=== PATIENT | female | born 1965 | race Caucasian/White ===

== ENCOUNTER 2018-09-11 21:14 | Emergency (ER) | payer OTHER ==
[2018-09-11 21:47] LABS: #Basophils 0.1 thou/uL (0.0-0.2); #Eosinphils 0.1 thou/uL (0.0-0.7); #Lymphocytes 1.7 thou/uL (1.20-3.40); #Monocytes 0.6 thou/uL (0.11-0.59); #Neutrophils 7.8 thou/uL (1.40-6.50); %Eosinophils 0.5 % (0.0-10.0); %Lymphocytes 16.6 % (21.0-51.0); %Monocytes 5.5 % (0.0-10.0); %Neutrophils 76.5 % (42.0-75.0); Hemoglobin 14.6 g/dL (12.0-16.0); Mean Corpuscular HGB CONC 33.3 g/dL (32.0-36.0); Mean Platelet Volume 9.1 fL (7.4-10.4); Platelet Count 195 thou/uL (130-400); RBC Distribution Width 11.5 % (11.5-14.5); Red Blood Cell (RBC) Count 4.71 mill/uL (4.20-5.40); White Blood Cell (WBC) Count 10.2 thou/uL (4.8-10.8)
[2018-09-11 22:09] LABS: ALT (SGPT) 29 U/L (8-55); AST (SGOT) 31 U/L (5-34); Albumin 4.3 g/dL (3.5-5.0); Alkaline Phosphatase 120 U/L (40-150); Anion Gap 15 mmol/L (10-20); BUN (Urea Nitrogen) 15 mg/dL (9.8-20.1); Bilirubin, Total 0.3 mg/dL (0.2-1.2); Calc. Creatinine Clearance 0 mL/min (70-130); Calcium 10.1 mg/dL (7.8-10.44); Carbon Dioxide 23 mmol/L (22-29); Chloride 104 mmol/L (98-107); Estimated GFR-MDRD 74; Globulin 2.6 g/dL (2.4-3.5); Glucose 146 mg/dL (70-105); Potassium 4.3 mmol/L (3.5-5.1); Protein, Total 6.9 g/dL (6.0-8.3); Sodium 138 mmol/L (136-145)
--- NOTE | 2018-09-12 08:58 | CT ---
PRELIMINARY REPORT/[facility]/EMERGENTY AFTER-HOURS PROCEDURE CT Head Without Contrast EXAM DATE/TIME: 09/12/2018 12:41 AM CLINICAL HISTORY: 53 years old, female; Signs and symptoms; Dizziness; Patient HX: F53 presents to ed with C/O dizzines s x5 days, intermittent. Patient reports that the dizziness seems to closely follow eating. Patient r eports increasing frequency of dizzy spells with headaches, nausea and diarrhea. Patient describes se nsation as spinning room and generalized weakness TECHNIQUE: Axial computed tomography images of the head/brain without contrast. COMPARISON: No relevant prior studies available. FINDINGS: Brain: Normal. Ventricles: Normal. Bones/joints: Normal. Sinuses: Normal as visualized. Mastoid air cells: Normal as visualized. Soft tissues: Normal. IMPRESSION: No acute intracranial abnormality. Thank you for allowing us to participate in the care of your patient. Dictated and Authenticated by: Sixto Ramos MD 09/12/2018 1:25 AM Central Time ([place] & [place]) FINAL REPORT CT HEAD NONCONTRAST: DATE: 09/12/2018. TIME: Performed on an emergency basis at 0042 hours. HISTORY: Dizziness. Altered mental status. FINDINGS: Agree with the preliminary report by Dr. Ramos from [facility]. No acute intracranial abnorm alities are demonstrated. POS: [facility]
--- NOTE | 2018-09-12 09:01 | CT ---
PRELIMINARY REPORT/[facility]/EMERGENTY AFTER-HOURS PROCEDURE CT Angiography Head With Contrast EXAM DATE/TIME: 09/12/2018 12:46 AM CLINICAL HISTORY: 53 years old, female; Signs and symptoms; Dizziness and giddiness; Patient HX: F53 presents to ed wit h C/O dizziness x5 days, intermittent. Patient reports that the dizziness seems to closely follow eat ing. Patient reports increasing frequency of dizzy spells with headaches, nausea and diarrhea. Patient describes sensation as spinning room and generalized weakness TECHNIQUE: Axial computed tomographic angiography images of the head with intravenous contrast using CT angiogra phy protocol. MIP reconstructed images were created and reviewed. COMPARISON: CT Brain WO Con 09/12/2018 12:41 AM FINDINGS: Right internal carotid artery: Unremarkable. Intracranial segment is patent with no significant steno sis. No aneurysm. Right anterior cerebral artery: Unremarkable. No occlusion or significant stenosis. No aneurysm. Right middle cerebral artery: Unremarkable. No occlusion or significant stenosis. No aneurysm. Right posterior cerebral artery: Unremarkable. No occlusion or significant stenosis. No aneurysm. Right vertebral artery: Unremarkable. No occlusion or significant stenosis. No aneurysm. Left internal carotid artery: Unremarkable. Intracranial segment is patent with no significant stenos is. No aneurysm. Left anterior cerebral artery: Unremarkable. No occlusion or significant stenosis. No aneurysm. Left middle cerebral artery: Unremarkable. No occlusion or significant stenosis. No aneurysm. Left posterior cerebral artery: Unremarkable. No occlusion or significant stenosis. No aneurysm. Left vertebral artery: Unremarkable. No occlusion or significant stenosis. No aneurysm. Basilar artery: Unremarkable. No occlusion or significant stenosis. No aneurysm. IMPRESSION: No acute findings. CT Angiography Neck With Contrast EXAM DATE/TIME: 09/12/2018 12:46 AM TECHNIQUE: Axial computed tomographic angiography images of the neck with intravenous contrast using CT angiogra phy protocol. MIP reconstructed images were created and reviewed. COMPARISON: No relevant prior studies available. FINDINGS: VASCULATURE: Right common carotid artery: Normal. No significant stenosis. No dissection or occlusion. Right internal carotid artery: Noncalcified atherosclerotic plaque within the proximal right ICA, cau sing less than 30% luminal narrowing. Right external carotid artery: Normal. No occlusion or significant stenosis. Right vertebral artery: Normal. No significant stenosis. No dissection or occlusion. Left common carotid artery: Normal. No significant stenosis. No dissection or occlusion. Left internal carotid artery: Mild mixed atherosclerotic plaque within the proximal left ICA, causing less than 30% luminal narrowing. Left external carotid artery: Normal. No occlusion or significant stenosis. Left vertebral artery: Normal. No significant stenosis. No dissection or occlusion. Subclavian arteries: Mild atherosclerotic disease of the proximal left subclavian artery, without sig nificant luminal narrowing or occlusion. NECK: Bones/joints: Anterior cervical discectomy and fusion at the C6-7 level. Soft tissues: Normal. No significant soft tissue swelling. Lung apices: Minimal centrilobular and paraseptal emphysema within the visualized lung apices. IMPRESSION: Mild bilateral proximal ICA atherosclerotic disease, without significant luminal narrowing or occlusi on. COMMENT: Reference per NASCET criteria for degree of stenosis: Mild: <50% stenosis. Moderate: 50-69% stenosis. Severe: 70-94% stenosis. Near occlusion: 95-99% stenosis. Thank you for allowing us to participate in the care of your patient. Dictated and Authenticated by: Sixto Ramos MD 09/12/2018 1:57 AM Central Time ([place] & [place]) FINAL REPORT CT ANGIOGRAM OF THE HEAD CT ANGIOGRAM OF TH NECK: HISTORY: Intermittent dizziness x 5 days. TECHNIQUE: CT angiogram of the head and neck are performed in the axial plane. Three-dimensional reformatted im ages are submitted for interpretation. FINDINGS: This report is in agreement with the preliminary report by [facility]. No evidence of significant stenosis in the cervical carotid arteries, based upon NASCET criteria. There is no significant stenosis at the level of [place]. POS: [facility]
== END 2018-09-12 02:20 | disposition home or self-care (01) ==
LOC: ERS 21:14
DX: K52.9 Noninfective gastroenteritis and colitis, unspecified (principal); R42 Dizziness and giddiness; E10.9 Type 1 diabetes mellitus without complications; E78.5 Hyperlipidemia, unspecified; F17.210 Nicotine dependence, cigarettes, uncomplicated; Z79.899 Other long term (current) drug therapy
CPT/HCPCS: 36415; 70450; 70496; 70498; 80053; 84484; 85025; 93005